=== PATIENT | female | born 1940 | race Caucasian/White ===

== ENCOUNTER 2022-01-15 12:48 | Outpatient (CLI) | payer MEDICARE, SELFPAY ==
--- NOTE | 2022-01-15 12:57 | ECG_ITS ---
Measurements Intervals [place] Rate: 66 P: 46 RI: 170 QRS: 4 QRSD: 94 T: 53 QT: 412 QTc: 432 Interpretive Statements SINUS RHYTHM LEFT VENTRICULAR HYPERTROPHY BASELINE ARTIFACT- I, III, AVR, AVL, AVF, V1-V6 BORDERLINE ECG NO PREVIOUS ECG AVAILABLE FOR COMPARISON Electronically Signed On 01-15-2022 13:36:23 CDT by Dell Porter D.O.
[2022-01-15 13:49] LABS: Anion Gap 9 mmol/L (8-16); Blood Urea Nitrogen 28 mg/dL (7-17); Calcium 9.6 mg/dL (8.4-10.2); Carbon Dioxide 28 mmol/L (22-30); Chloride 98 mmol/L (98-107); Estimated Glomerular Filt Rate > 60; Glucose 115 mg/dL (65-110); Potassium 3.3 mmol/L (3.4-5.0); Sodium 135 mmol/L (137-145)
== END 2022-01-15 12:49 | disposition home or self-care (01) ==
PROVIDERS: Anesthesiology; PCP Internal Medicine; Visit Provider Orthopaedic Surgery
DX: I10 Essential (primary) hypertension (principal); Z01.818 Encounter for other preprocedural examination; R94.31 Abnormal electrocardiogram [ECG] [EKG]
CPT/HCPCS: 36415; 80048; 93005

== ENCOUNTER 2022-01-18 01:54 | Day surgery (SDC) | payer MEDICARE, SELFPAY ==
--- NOTE | 2022-01-14 15:20 | PC.NURSE ---
Report to the Outpatient Waiting Room, entrance under the green pavilion located off [address], at time _1300 on date __01/18/22 . OR Time: __1500 . Time changes happen often and if your time is changed the preop area will call you the afternoon before. - You and your visitor will be asked to self-screen and do not enter if you have any COVID symptoms. - Only one visitor and NO children visitors are allowed at this time. - The patient visitor is requested to leave or wait in car when not with patient due to restrictions. - A mask is required within the hospital. Patients may have clear liquids (water, carbonated beverages, clear teas, apple juice) until 3 hours prior to surgery with a maximum of 20 ounces. - No food from midnight until time of surgery - Infants may have breast milk until 4 hours before surgery, formula 6 hours prior to surgery. - Children will be allowed to drink immediately following surgery. If applicable, please bring a bottle or sippy cup to assist with drinking. Juice, water, soda, and popsicles are readily available. For infants on formula, please bring formula the day of surgery. Pacifiers are allowed. Take the following medications with a SIP of water the morning of surgery: __AMLODIPINE, EYE DROP TIMOLOL Medications to discontinue per physician _PT STATES ALL VITAMNS AND SUPPLEMENTS AND ASPIRIN 7 DAYS PRE OP_PER DR BAILON Date to take last dose___01/10/22 Please no make-up, nail american, hairspray, perfume, deodorant, or body powder the day of surgery. No jewelry (including any body piercings) or valuables the day of surgery, leave them at home. Please take a shower or bath the night before, or the morning of, surgery with an antibacterial soap. Wear comfortable, loose fitting clothing. Children are encouraged to wear pajamas. - Jewelry must be removed prior to entering the operating room. Rings and piercings that are not removed may be cut off. - The hospital will not accept responsibility for valuables. - Please leave all valuables, including medications, at home the day of surgery. If you are going home after surgery, a licensed transit bus driver must drive you home. - NO public transportation without another adult. - We recommend that an adult stay with you for 24 hours following discharge. - We also recommend that you do not drive, make important decision, drink alcoholic beverages, or take any drugs that were not prescribed by your health care provider for at least 24 hours after your discharge time. For Pediatric surgeries, we recommend two adults accompany the child home (only one inside the building at this time). Follow any additional instructions given to you from your surgeon. If you or anyone in your household have experienced Covid symptoms in the past week, please notify your surgeon or the nurse liaison at the phone number below for possible testing. Telephone instructions given to ___PATIENT and asked if any additional questions and then verbalized understanding. Patient advised to call surgeon office or pre surgery nurse liaison [phone] if any additional questions.
[2022-01-14 15:34] VITALS: BMI 23.0
--- NOTE | 2022-01-18 10:03 | WPDANESEPPF ---
Anes - Initial Pre Proc Eval Procedure: Operation Date: 01/18/22 14:00 Proposed Procedures p Right Knee Arthroscopic Partial Medial and Lateral Meniscectomy - Todd Hernandez MD Date/Time: 01/18/22 10:03 Surgeon: Todd Hernandez MD Pre Op Diagnosis: lat meniscus tear,medial meniscus derangement rt k Patient Data Age: 81 Gender: F Height: 1.52 m Weight: 53.55 kg Allergies Allergy/AdvReac Type Severity Reaction Status Date / Time penicillin G Allergy Severe Hives Verified 01/18/22 12:29 codeine Allergy Unknown Fatigued Verified 01/18/22 12:29 Sulfa (Sulfonamide Allergy Unknown Unknown Verified 01/18/22 12:29 Antibiotics) clarithromycin [From Biaxin] AdvReac VAGINAL Verified 01/18/22 12:29 BLEEDING Home Medications Medication Instructions Recorded Confirmed Type ascorbate calcium (vitamin C) 500 500 mg PO DAILY 11/14/21 01/14/22 History mg tablet aspirin 81 mg tablet,delayed 81 mg PO DAILY 11/14/21 01/14/22 History release (Adult Aspirin Regimen) calcium-magnesium 300 mg-300 mg 1 tablet PO DAILY 11/14/21 01/18/22 History tablet cyanocobalamin (vitamin B-12) 1,000 mcg PO DAILY 11/14/21 01/18/22 History 1,000 mcg capsule timolol maleate 0.5 % once daily 1 drp EACH EYE Q12H 11/14/21 01/18/22 History eye drops amlodipine 5 mg tablet 5 mg PO DAILY 12/07/21 01/18/22 History celecoxib 200 mg capsule 200 mg PO DAILY 12/07/21 01/18/22 History estradiol 10 mcg vaginal tablet 10 mcg vaginal 2XW 12/07/21 01/18/22 History (Vagifem) methenamine hippurate 1 gram tablet 1 g PO BID 12/07/21 01/18/22 History hypdirqnwlhu-zzbuyuto-sufylh tablet 1 tablet PO DAILY 12/07/21 01/18/22 History omeprazole 20 mg capsule,delayed 20 mg PO DAILY 12/07/21 01/18/22 History release potassium chloride 20 mEq 20 meq PO DAILY 12/07/21 01/18/22 History tablet,extended release(part/cryst) simvastatin 10 mg tablet 10 mg PO DAILY 12/07/21 01/18/22 History valsartan 320 1 tablet PO DAILY 12/07/21 01/18/22 History mg-hydrochlorothiazide 12.5 mg tablet vit C 250 mg-vit E 90 mg-zinc 40 1 tablet PO BID 12/07/21 01/18/22 History mg-copper 1 hg-scxjwg-hztakk capsule (PreserVision AREDS-2) latanoprost 0.005 % eye drops 1 drp EACH EYE HS 01/14/22 01/18/22 History ECG: Date of Service: 01/15/22 Procedure(s): CA 12 lead EKG Accession Number(s): [id number] cc: ~ ? Measurements Intervals? [place]? Rate: ? 66 ? P:? 46 [place]: ? 170? QRS:? 4 QRSD: ? 94 ? T:? 53 QT: ? 412? QTc:? 432? Interpretive Statements SINUS RHYTHM LEFT VENTRICULAR HYPERTROPHY BASELINE ARTIFACT- I, III, AVR, AVL, AVF, V1-V6 BORDERLINE ECG NO PREVIOUS ECG AVAILABLE FOR COMPARISON Electronically Signed On 01-15-2022 13:36:23 CDT by Dell Porter D.O. Patient hx anesthesia problems: none Family hx anesthesia problems: none Results Review: All pre-operative results and documents have been reviewed as part of the pre-operative evaluation. [facility] Past Medical History Medical History (Updated 01/18/22 @ 10:04 by Shubham Padron MD) Chronic GERD Glaucoma History of cardiac disorder Hyperlipidemia Hypertension PVD (peripheral vascular disease) Surgical History Surgical History (Updated 01/18/22 @ 10:04 by Shubham Padron MD) S/P carotid endarterectomy Social History Social History Smoking status: Former smoker Tobacco type: cigarettes Additional smoking assessment comments: quit Alcohol intake: never Substance use: never Substance use type: does not use Living arrangements: alone Spiritual care concerns: No Anes - Eval Final PreProcedure Day of Pro
--- NOTE | 2022-01-18 12:02 | WPDHPUPDATE1 ---
History and Physical Update Update Date/Time: 01/18/22 12:02 History and Physical has been reviewed, including an updated exam of the patient. There are NO changes in the patient's condition. Risks, benefits, and alternatives have been discussed and questions answered. Patient agrees to proceed with procedure.
[2022-01-18] MEDS: ACETAMINOPHEN 500 MG TABLET 1000 MG PO (12:20)
[2022-01-18] MEDS: LACTATED RINGERS 1,000 ML 30 ML IV CONT ×2 (12:30→15:37)
[2022-01-18] MEDS: KETOROLAC 15 MG/ML VIAL (*BKC) IV PUSH ×2 (12:40→14:38)
[2022-01-18] MEDS: ceFAZolin 2 GM/D5W 50 ML 2 GM/50 ML BAG IVPB (14:20)
--- NOTE | 2022-01-18 14:21 | P.OP_ITS ---
Procedure Note - Detailed Date of Procedure 01/18/22 Pre-op Diagnosis lat meniscus tear,medial meniscus derangement rt knee Post-op Diagnosis Same Procedure Performed Arthroscopic partial medial and lateral meniscectomy, right knee. Surgeon Todd Hernandez MD Anesthesia General Findings Extensive horizontal cleavage medial. lateral complex degenerative tear at the lateral aspect, and posterior horn. Tapered to a smooth border. Medial femur chondromalacia grade 1, medial tibia grade 1. Lateral femur chondr omalacia grade 2, lateral tibia grade 2. Patellar grade 0, trochlea grade 0. Description of Procedure The patient was identified and the surgical site confirmed and signed in the preoperative holding area. Antibiotics were started per protocol. She was brought to the operative room and transferred to the OR table. A general anesthetic was administered. Supine position with the operative lower extremity position in the leg zelaya after placement of a well padded tourniquet. The leg support was lowered and the contralateral limb was supported with a soft bolster. The knee was prepped and draped in the usual sterile fashion. A time- out was performed. The portal sites were marked and infiltrated with 0.5% Marcaine 20 mL. The limb was exsanguinated and the tourniquet inflated to 300 mL Hg. Standard inferolateral and inferomedial portals were established. Inflow was obtained with the saline pump. The camera was introduced. Diagnostic inspection of the joint was accomplished. The menisci were debrided with the arthroscopic shaver and punches until stable. The radiofrequency probe was also used for further d?bridement. The arthroscopic instruments were removed. The tourniquet released and wounds closed with subcutaneous 4-0 Monocryl absorbable suture. Steri strips and a sterile dressing were applied. A light elastic wrap was placed. The patient was extubated and brought to the recovery room in stable condition. Estimated Blood Loss 1 Drains No Complications No immediate complications Condition Stable Disposition PACU [facility] Billing Surgery - Charge Forward: Surgery Billing
[2022-01-18] MEDS: BUPIVACAINE/EPINEPHRINE 0.25% 50 ML VIAL 20 ML INFILTRATE (14:43)
[2022-01-18 15:10] VITALS: BP 115/63; PULSE 77; RESP 14; TEMP 36.6; O2SAT 97
[2022-01-18 15:25] VITALS: BP 156/83; PULSE 78; RESP 20; O2SAT 100
[2022-01-18 15:38] VITALS: BP 167/80; PULSE 80; RESP 14; O2SAT 100
[2022-01-18 15:41] VITALS: BP 180/96; PULSE 85; RESP 20
[2022-01-18 16:10] VITALS: BP 170/80; PULSE 80; RESP 20
== END 2022-01-18 16:25 | disposition home or self-care (01) ==
PROVIDERS: PCP Internal Medicine; Visit Provider Orthopaedic Surgery
PROC: (CPT 29870; principal; 2022-01-18 14:00)
DX: S83.281A Other tear of lateral meniscus, current injury, right knee, initial encounter (principal); M23.321 Other meniscus derangements, posterior horn of medial meniscus, right knee; T14.90XA Injury, unspecified, initial encounter; M94.261 Chondromalacia, right knee; K21.9 Gastro-esophageal reflux disease without esophagitis; E78.5 Hyperlipidemia, unspecified; I10 Essential (primary) hypertension; I73.9 Peripheral vascular disease, unspecified; Z87.891 Personal history of nicotine dependence; H40.9 Unspecified glaucoma
CPT/HCPCS: 29880; 36415; 80048; 93005; A9270; J0690; J1100; J1170; J1885; J2405; J2704; J3010; J7120